=== PATIENT | female | born 2005 | race Caucasian/White ===

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

== ENCOUNTER 2025-07-15 13:37 | Emergency (ER) | payer BC, OTHER ==
[2025-07-15 16:21] VITALS: PULSE 68
[2025-07-15 17:01] VITALS: BP 118/68
== END 2025-07-15 17:36 | disposition home or self-care (01) ==
LOC: MW.ED 13:37
DX: S13.9XXA Sprain of joints and ligaments of unspecified parts of neck, initial encounter (principal); Z79.899 Other long term (current) drug therapy; X58.XXXA Exposure to other specified factors, initial encounter
CPT/HCPCS: 72125; 81025; 99284; A9270